=== PATIENT | female | born 1980 | race Hispanic/Latino ===

== ENCOUNTER → 2017-11-17 | Outpatient (CLI) | payer OTHER ==
[~2017-11-17] MED LIST: DIATRIZOATE MEGL/DIATRIZOA SOD 30 ML BTL PO ONE; IOPAMIDOL 370 MG/ML 200 ML INFUS..BTL INJ ONE; SODIUM CHLORIDE 0.9% 50ML 50 ML ONE
[2017-11-17 08:39] LABS: BASOPHILS % 0.3 % (0.0-1.0); EOSINOPHILS # (AUTO) 0.2 (0.0-0.4); EOSINOPHILS % 2.7 % (0.0-6.0); HEMATOCRIT 42.9 % (34.2-44.1); HEMOGLOBIN 14.7 g/dL (12.0-16.0); LYMPHOCYTES # (AUTO) 1.9 (1.0-3.2); MEAN CORPUSCULAR HEMOGLOBIN 30.1 pg (28-32); MEAN CORPUSCULAR HGB CONC 34.3 g/dL (31-35); MEAN CORPUSCULAR VOLUME 87.9 fL (81-99); MONOCYTES # (AUTO) 0.4 (0.2-0.8); NEUTROPHILS # (AUTO) 4.2 (2.1-6.9); NEUTROPHILS % 62.9 % (38.7-80.0); PLATELET COUNT 218 x10e3/uL (140-360); RED BLOOD COUNT 4.88 x10e6/uL (3.6-5.1); RED CELL DISTRIBUTION WIDTH 12.6 % (11.7-14.4)
[2017-11-17 08:43] LABS: BILIRUBIN,URINE NEGATIVE (NEGATIVE); CLARITY,URINE CLEAR (CLEAR); COLOR,URINE YELLOW (YELLOW); KETONES,URINE NEGATIVE (NEGATIVE); LEUKOCYTE ESTERASE ,URINE NEGATIVE (NEGATIVE); NITRITE,URINE NEGATIVE (NEGATIVE); PREGNANCY TEST, URINE NEGATIVE (NEGATIVE); PROTEIN,URINE DIPSTICK NEGATIVE (NEGATIVE); URINE UROBILINOGEN 0.2 mg/dL (0.2 - 1)
[2017-11-17 08:54] LABS: BLOOD UREA NITROGEN 14 mg/dL (7-26); BUN/CREATININE RATIO 22 (6-25); CALCIUM 9.6 mg/dL (8.4-10.2); CARBON DIOXIDE 25 mmol/L (22-29); CHLORIDE 105 mmol/L (98-107); CREATININE, SERUM 0.65 mg/dL (0.57-1.11); EST GLOMERULAR FILTRATION RATE > 60 ML/MIN (60-); GLUCOSE 104 mg/dL (74-118); SODIUM 139 mmol/L (136-145)
--- NOTE | 2017-11-17 09:37 | Diagnostic Imaging Report ---
PROCEDURE: CT ABDOMEN AND PELVIS WITH CONTRAST TECHNIQUE: The abdomen and pelvis were scanned utilizing a multidetector helical scanner from the diaphragm to the lesser trochanter after the IV administration of 100 cc Isovue 370 and the oral administration of Gastrografin. Coronal and sagittal multiplanar reformations were obtained. COMPARISON: None. INDICATIONS: VENTRAL HERNIA FINDINGS: LOWER THORAX: Linear scar or subsegmental atelectasis in the lingula, right middle lobe, and dependent lower lobes. No pleural or pericardial effusion. HEPATOBILIARY: No focal hepatic lesion or intrahepatic biliary ductal dilatation. The gallbladder is unremarkable. SPLEEN: No splenomegaly. PANCREAS: No focal masses or ductal dilatation. ADRENALS: No adrenal nodules. KIDNEYS/URETERS: No hydronephrosis, stones, or solid mass lesions. PELVIC ORGANS/BLADDER: Urinary bladder is unremarkable. Uterus is anteflexed with an intrauterine device in the endometrial cavity. No adnexal mass. PERITONEUM / RETROPERITONEUM: No free air or fluid. LYMPH NODES: No pelvic sidewall, retroperitoneal, or mesenteric lymphadenopathy. VESSELS: The abdominal aorta, major branch vessels, and iliac arterial systems are well-visualized and patent, without aneurysmal dilatation. Retroaortic left renal vein. Portal vein, splenic vein, and central superior mesenteric vein are patent. GI TRACT: The large bowel shows no evidence of distention or wall thickening. Gas and fecal material are noted throughout. The appendix is normal. There is no small bowel dilatation to suggest obstruction. BONES AND SOFT TISSUES: Midline supraumbilical ventral abdominal wall hernia has a neck measuring 1.7 cm in transverse dimension as seen on series 2 image 50. The hernia sac contains only omental fat and vasculature and measures approximately 3 cm AP by 9.5 cm transverse by 3.3 cm craniocaudal. No osseous destructive lesions. Scattered bone islands within the thoracolumbar spine. IMPRESSION: Fat-containing midline supraumbilical ventral hernia with neck measuring 1.7 cm transversely. No acute intra-abdominal or pelvic CT abnormalities. Dictated by: Judah Jorge M.D. on 11/17/2017 at 9:41 Electronically approved by: Judah Jorge M.D. on 11/17/2017 at 9:41
== END ==
LOC: CT 07:37
PROVIDERS: ATTEND Surgery
DX: K43.9 Ventral hernia without obstruction or gangrene (principal)
CPT/HCPCS: 36415; 74177; 80048; 81003; 81025; 85025; Q9967

== ENCOUNTER → 2017-11-24 | Day surgery (SDC) | payer OTHER ==
[~2017-11-24] MED LIST changes: +ACETAMINOPHEN 1000 MG/100 ML IV ONE; +BACITRACIN 50,000 UNIT VIAL ONE; +BUPIVACAINE 0.5%/EPI 30 ML SDV INJ ONE; +CEFAZOLIN SOD 1 GM VIAL ONE; +DEXAMETHASONE SOD PHOS INJ 4 MG/ML VIAL ONE; -DIATRIZOATE MEGL/DIATRIZOA SOD 30 ML BTL PO ONE; +FENTANYL CITRATE/PF 100MCG/2 ML INJ ONE; +GLYCOPYRROLATE INJ 1MG/ 5 ML SYR ONE; -IOPAMIDOL 370 MG/ML 200 ML INFUS..BTL INJ ONE; +KETOROLAC TROMETHAMINE 30 MG/ML VIAL ONE; +LIDOCAINE HCL 2% LOCAL INJ 5 ML SDV VIAL INJ ONE; +MIDAZOLAM HCL 2 MG/2 ML VIAL ONE; +NEOSTIGMINE 5 MG/5ML SYR ONE; +ONDANSETRON HCL INJ 2 MG/ML VIAL ONE; +PROPOFOL IV EMULSION 10 MG/ML 20 ML VIAL ONE; +ROCURONIUM BROMIDE 10 MG/ML 5ML VIAL ONE; +SEVOFLURANE INHAL SOLN 250 ML PEN BTL ONE
--- NOTE | 2017-11-24 09:49 | Operative Report ---
DATE OF PROCEDURE: November 24, 2017 PREOPERATIVE DIAGNOSES 1. Supraumbilical herniation. 2. Morbid obesity. POSTOPERATIVE DIAGNOSES 1. Supraumbilical herniation. 2. Morbid obesity. PROCEDURE PERFORMED: Repair of supraumbilical hernia with Ultra Pro hernia system, medium size. ANESTHESIA: General. ESTIMATED BLOOD LOSS: Minimal. DRAINS: None. COMPLICATIONS: None. INDICATIONS AND FINDINGS: The patient is a 38-year-old morbidly obese female who complains of a ventral hernia superior to the umbilicus for several years increasing in size, more tender now. Preoperatively, she had a CT scan that showed fat contents of the hernia. DESCRIPTION OF PROCEDURE: With the patient lying on the operating table in the supine position and after administration of general anesthesia, she was prepped and draped for repair of ventral hernia. An incision was made transversely across the hernia, and the dissection was carried down through the skin and subcutaneous tissue until the hernia was identified. It consisted of properitoneal fat, which was then excised. The neck of the hernia was small, about 2 cm or less. Then after we excised the properitoneal fat and gained access to the intra-abdominal cavity, we deployed the proceed ventral patch medium size laying flat against the abdominal wall and avoiding any interposition of tissue between the mesh and the abdominal wall. We secured the mesh to the fascia through the straps, as well as through the fascia superiorly and inferiorly. The straps were placed transversely. After we did that, then we loosely approximated the fascia after the mesh was secured to the abdominal wall with a series of a interrupted 0 Ethibond sutures that incorporated part of the straps that had been cut to obliterate the space in the middle of the incision. The wound was irrigated. Bleeding points cauterized. A fascial block was given with 0.25% Marcaine with epinephrine. The wound was then irrigated. Sponge and instrument count was pronounced correct. Then the soft tissues were closed using 2-0 chromic catgut, and the subcuticular plane was closed using 2-0 Vicryl. The skin was closed using raymundo. A field block was then given with 0.25% Marcaine with epinephrine also. The patient tolerated the procedure well, and taken to the recovery room in stable condition. Job#: [id number] [place]
== END | disposition home or self-care (01) ==
LOC: OR 05:24
PROVIDERS: ATTEND Surgery
DX: K43.9 Ventral hernia without obstruction or gangrene (principal); E66.01 Morbid (severe) obesity due to excess calories; Z68.42 Body mass index [BMI] 45.0-49.9, adult; Z87.891 Personal history of nicotine dependence
CPT/HCPCS: 49560; 49568; 81025; 88302; C1781; J0690; J1100; J1885; J2001; J2250; J2405; J3490; 88304